=== PATIENT | female | born 1955 ===

== ENCOUNTER → 2018-08-14 22:40 | Outpatient (REF) | payer OTHER, SELFPAY ==
[2018-08-15 00:01] LABS: Albumin 4.2 g/dL (3.5-5.0); BUN Creatinine Ratio 18.6 (6-22); Blood Urea Nitrogen 13 mg/dL (7-17); Calcium 9.4 mg/dL (8.4-10.2); Carbon Dioxide 30 mmol/L (22-32); Chloride 104 mmol/L (98-107); Estimated Glomerular Filt Rate > 60.0 mL/min (>60); Glucose 85 mg/dL (80-110); HEMOLYSIS < 15 (0-50); Phosphorous 3.8 mg/dL (2.8-4.1); Potassium 4.5 mmol/L (3.4-5.1); Sodium 142 mmol/L (137-145)
[2018-08-15 00:45] LABS: Free T3, Triiodothyronine Free 3.76 pg/mL (2.77-5.27); Free T4, Direct Thyroxine 1.08 ng/dL (0.78-2.19)
[2018-08-15 00:58] LABS: Thyroid Stimulating Hormone 2.43 uIU/mL (0.47-4.68)
[2018-08-19 20:07] LABS: Magnesium, RBC 4.3 mg/dL (4.0-6.4)
== END ==
LOC: LAB 22:40
PROVIDERS: Visit Provider Family Medicine
DX: G51.4 Facial myokymia (principal); E03.9 Hypothyroidism, unspecified
CPT/HCPCS: 36415; 80069; 83735; 84439; 84443; 84481